=== PATIENT | male | born 1960 | race Caucasian/White ===

== ENCOUNTER 2018-09-06 15:15 | Inpatient (IN) | payer BC ==
--- NOTE | 2018-09-06 15:25 | EDPHY ---
H & P Time Seen by Provider: 09/06/18 15:24 HPI/ROS: CHIEF COMPLAINT: Shaking chills HISTORY OF PRESENT ILLNESS: Was on his way to Dr. Morrissey office to follow up on a prostate biopsy 10 days ago. He apparently has prostate cancer and was notified today. He started having chills and shaking on the way in. He presents to the ED now with severe shaking and chills. He feels hot and cold. He had some associated blood in his urine today but no dysuria. Denies vomiting or diarrhea or abdominal pain, no coughing or chest pain. REVIEW OF SYSTEMS: Eye: no change in vision ENT: no sore throat Cardiac: no chest pain or syncope Pulmonary: no cough or SOB Abdomen: HPI Musculoskeletal: no back pain Skin: no rash Neuro: no headache Constitutional: HPI : HPI A comprehensive 10 point review of systems is otherwise negative aside from elements mentioned in the history of present illness. PAST MEDICAL HISTORY: Prostate biopsy 10 days ago Social history: here with General Appearance: Alert and moderately uncomfortable, breathing fast. Eyes: No scleral icterus. ENT, Mouth: Normal mucous membranes. Respiratory: Normal respiratory effort, breath sounds equal, lungs are clear to auscultation. Tachypneic. Cardiovascular: Regular rate and rhythm. Gastrointestinal: Right upper quadrant and suprapubic tenderness on examination. Neurological: Alert, face symmetric, normal motor and sensory in extremities. Skin: Skin is pale but not diaphoretic. Musculoskeletal: No peripheral edema. Psychiatric: Appears moderately anxious. Emergency Department course/MDM: Patient hyperventilating and anxious, given 1 mg IV Ativan. Blood gas evaluated, shows acidosis which is metabolic. Will treat for possible severe sepsis with initial lactate greater than 6. Ceftriaxone 1 g ordered as most likely source is urinary. 1614: CT scan shows prostatitis per Dr. Josue otherwise negative. Results discussed with the patient. Lactated Ringer's 30 mL/kilos IV bolus. Urinalysis pending. 165: Discussed with Ghanshyam. 2nd lactate decreased from the 1st. Smoking Status: Former smoker Constitutional: Initial Vital Signs Temperature (C) 36.6 C 09/06/18 15:20 Heart Rate 143 H 09/06/18 15:20 Respiratory Rate 20 09/06/18 15:20 Blood Pressure 150/125 H 09/06/18 15:20 O2 Sat (%) 98 09/06/18 15:20 O2 Delivery Mode Room Air Allergies/Adverse Reactions: metoclopramide HCl [From Reglan] Allergy (Verified 09/06/18 17:01) Home Medications: Medication Instructions Recorded Ascorbic Acid [Vitamin C 500 mg 1,000 mg PO DAILY 09/06/18 (*)] Aspirin EC [Aspirin EC 81 mg (*)] 81 mg PO DAILY 09/06/18 Cholecalciferol Vit D3 [Vitamin D3 1,000 units PO DAILY 09/06/18 (*)] Desloratadine 5 mg PO DAILY 09/06/18 Fluticasone Nasal [Flonase Nasal 1 spray EACHNARE DAILY PRN 09/06/18 [place] (RX)] Ibuprofen [Motrin (*)] 200 - 600 mg PO Q8H PRN 09/06/18 Multivitamins [Multivitamin (*)] 1 each PO DAILY 09/06/18 Pantoprazole Sodium [Protonix 40mg 40 mg PO DAILY 09/06/18 (*)] Zolpidem Tartrate [Zolpidem 12.5 mg PO HS PRN 09/06/18 Tartrate ER] Medical Decision Making - Diagnostics Imaging Results: Imaging Impressions Abdomen CT 09/06/18 15:37 Impression: 1. Prostatitis status post biopsy without adjacent abscess or fluid collection. 2. Sigmoid diverticulosis without diverticulitis. 3. No appendicitis, bowel obstruction or significant adenopathy. 4. Small fat-containing periumbilical abdominal wall hernia. Findings and recommendations discussed with Emergency Department physician, Dr. Parveen Gomez at 1610 hours on September 06, 2018. Final report concurs with initial preliminary interpretation. Chest X-Ray 09/06/18 15:39 Impression: No evidence for pneumonia or metastatic prostate cancer. Imaging: Discussed imaging studies w/ on call Radiologist Consult/Admit Bed Type: [place] [id number] Critical Care Time: Critical care time spent by me, Dr. Gomez, exclusively with the care of this patient was 35 minutes, exclusive of PA or TRADE SALES ASSISTANT time and exclusive of separate procedures. The organ system at risk was infectious and I ordered multiple diagnostics, IV antibiotics, IV fluids to stabilize the patient and prevent worsening of the patient's condition. - Data Points Laboratory Results: Laboratory Results 09/06/18 15:27 09/06/18 15:27 10/09/1409/06/18 09/06/18 16:10 15:30 15:29 WBC RBC Hgb POC Hgb 16.7 gm/dL gm/dL (13.7-17.5) Hct POC Hct 49 % % (40-51) MCV MCH MCHC RDW Plt Count MPV Neut % (Auto) Lymph % (Auto) [place] % (Auto) Eos % (Auto) Baso % (Auto) Nucleat RBC Rel Count Absolute Neuts (auto) Absolute Lymphs (auto) Absolute Monos (auto) Absolute Eos (auto) Absolute Basos (auto) Absolute Nucleated RBC Immature Gran % Immature Gran # PT INR APTT POC Blood Source VENOUS Patient Temperature 36.6 DEGREES DEGREES POC VBG pH 7.29 L (7.31-7.42) POC VBG pCO2 40 mmHg mmHg (40-44) POC VBG pO2 TNP POC VBG HCO3 20 mEq/L L mEq/L (22-26) POC VBG Total CO2 21 mEq/L mEq/L (21-27) POC VBG Base Excess -7.0 mEq/L L mEq/L (-2.5-2.5) VBG Lactic Acid POC Mix VBG O2 Sat TNP POC Sodium 142 mEq/L mEq/L (135-145) Sodium POC Potassium 4.1 mEq/L mEq/L (3.3-5.0) Potassium POC Chloride 104 mEq/L mEq/L (97-110) Chloride Carbon Dioxide Anion Gap POC BUN 20 mg/dL mg/dL (7-23) BUN Creatinine POC Creatinine 1.1 mg/dL mg/dL (0.7-1.3) Estimated GFR Glucose POC Glucose 98 mg/dL mg/dL (70-100) POC Lactic Acid Zay 6.2 mmol/L H mmol/L (0.7-2.1) Calcium Total Bilirubin Conjugated Bilirubin Unconjugated Bilirubin AST ALT Alkaline Phosphatase Total Protein Albumin Lipase Urine Color YELLOW Urine Appearance MODERATELY TURBID Urine pH 5.0 (5.0-7.5) Ur Specific [place] 1.029 (1.002-1.030) Urine Protein 1+ H (NEGATIVE) Urine Ketones NEGATIVE (NEGATIVE) Urine Blood 3+ H (NEGATIVE) Urine Nitrate NEGATIVE (NEGATIVE) Urine Bilirubin NEGATIVE (NEGATIVE) Urine Urobilinogen NEGATIVE EU EU (0.2-1.0) Ur Leukocyte Esterase 3+ H (NEGATIVE) Urine RBC 50-182 /hpf H /hpf (0-3) Urine WBC 50-182 /hpf H /hpf (0-3) Ur Epithelial Cells NONE SEEN /lpf /lpf (NONE-1+) Urine Bacteria 1+ /hpf H /hpf (NONE SEEN) Urine Mucus TRACE /lpf /lpf (NONE-1+) Urine Glucose NEGATIVE (NEGATIVE) 09/06/18 09/06/18 09/06/18 15:27 15:27 15:27 WBC 13.07 10^3/uL H 10^3/uL (3.80-9.50) RBC 5.31 10^6/uL 10^6/uL (4.40-6.38) Hgb 16.4 g/dL g/dL (13.7-17.5) POC Hgb Hct 48.1 % % (40.0-51.0) POC Hct MCV 90.6 fL fL (81.5-99.8) MCH 30.9 pg pg (27.9-34.1) MCHC 34.1 g/dL g/dL (32.4-36.7) RDW 12.8 % % (11.5-15.2) Plt Count 282 10^3/uL 10^3/uL (150-400) MPV 10.4 fL fL (8.7-11.7) Neut % (Auto) 88.1 % H % (39.3-74.2) Lymph % (Auto) 10.1 % L % (15.0-45.0) [place] % (Auto) 0.4 % L % (4.5-13.0) Eos % (Auto) 0.7 % % (0.6-7.6) Baso % (Auto) 0.2 % L % (0.3-1.7) Nucleat RBC Rel Count 0.0 % % (0.0-0.2) Absolute Neuts (auto) 11.52 10^3/uL H 10^3/uL (1.70-6.50) Absolute Lymphs (auto) 1.32 10^3/uL 10^3/uL (1.00-3.00) Absolute Monos (auto) 0.05 10^3/uL L 10^3/uL (0.30-0.80) Absolute Eos (auto) 0.09 10^3/uL 10^3/uL (0.03-0.40) Absolute Basos (auto) 0.03 10^3/uL 10^3/uL (0.02-0.10) Absolute Nucleated RBC 0.00 10^3/uL 10^3/uL (0-0.01) Immature Gran % 0.5 % % (0.0-1.1) Immature Gran # 0.06 10^3/uL 10^3/uL (0.00-0.10) PT 12.9 SEC SEC (12.0-15.0) INR 0.95 (0.83-1.16) APTT 24.7 SEC SEC (23.0-38.0) POC Blood Source Patient Temperature POC VBG pH POC VBG pCO2 POC VBG pO2 POC VBG HCO3 POC VBG Total CO2 POC VBG Base Excess VBG Lactic Acid POC Mix VBG O2 Sat POC Sodium Sodium 141 mEq/L mEq/L (135-145) POC Potassium Potassium 4.6 mEq/L mEq/L (3.3-5.0) POC Chloride Chloride 103 mEq/L mEq/L (97-110) Carbon Dioxide 20 mEq/l L mEq/l (22-31) Anion Gap 18 mEq/L H mEq/L (8-16) POC BUN BUN 18 mg/dL mg/dL (7-23) Creatinine 1.1 mg/dL mg/dL (0.7-1.3) POC Creatinine Estimated GFR > 60 Glucose 96 mg/dL mg/dL (70-100) POC Glucose POC Lactic Acid Zay Calcium 10.1 mg/dL mg/dL (8.5-10.4) Total Bilirubin 0.7 mg/dL mg/dL (0.1-1.4) Conjugated Bilirubin 0.2 mg/dL mg/dL (0.0-0.5) Unconjugated Bilirubin 0.5 mg/dL mg/dL (0.0-1.1) AST 26 IU/L IU/L (17-59) ALT 43 IU/L IU/L (21-72) Alkaline Phosphatase 52 IU/L IU/L (38-126) Total Protein 8.4 g/dL H g/dL (6.3-8.2) Albumin 5.2 g/dL H g/dL (3.5-5.0) Lipase 55 IU/L IU/L (23-300) Urine Color Urine Appearance Urine pH Ur Specific [place] Urine Protein Urine Ketones Urine Blood Urine Nitrate Urine Bilirubin Urine Urobilinogen Ur Leukocyte Esterase Urine RBC Urine WBC Ur Epithelial Cells Urine Bacteria Urine Mucus Urine Glucose 09/06/18 15:25 WBC RBC Hgb POC Hgb Hct POC Hct MCV MCH MCHC RDW Plt Count MPV Neut % (Auto) Lymph % (Auto) [place] % (Auto) Eos % (Auto) Baso % (Auto) Nucleat RBC Rel Count Absolute Neuts (auto) Absolute Lymphs (auto) Absolute Monos (auto) Absolute Eos (auto) Absolute Basos (auto) Absolute Nucleated RBC Immature Gran % Immature Gran # PT INR APTT POC Blood Source Patient Temperature POC VBG pH POC VBG pCO2 POC VBG pO2 POC VBG HCO3 POC VBG Total CO2 POC VBG Base Excess VBG Lactic Acid 6.4 mmol/L H mmol/L (0.7-2.1) POC Mix VBG O2 Sat POC Sodium Sodium POC Potassium Potassium POC Chloride Chloride Carbon Dioxide Anion Gap POC BUN BUN Creatinine POC Creatinine Estimated GFR Glucose POC Glucose POC Lactic Acid Zay Calcium Total Bilirubin Conjugated Bilirubin Unconjugated Bilirubin AST ALT Alkaline Phosphatase Total Protein Albumin Lipase Urine Color Urine Appearance Urine pH Ur Specific [place] Urine Protein Urine Ketones Urine Blood Urine Nitrate Urine Bilirubin Urine Urobilinogen Ur Leukocyte Esterase Urine RBC Urine WBC Ur Epithelial Cells Urine Bacteria Urine Mucus Urine Glucose Medications Given: Acetaminophen (Tylenol) 650 mg PO Q4HRS PRN PRN Reason: Pain, Mild/Fever, Can Take PO Stop: 03/05/19 17:11 Last Admin: 09/06/18 17:14 Dose: 650 mg Discontinued Medications Hydromorphone HCl (Dilaudid) 1 mg IVP EDNOW ONE Stop: 09/06/18 16:45 Last Admin: 09/06/18 16:47 Dose: 1 mg Lactated Ringer's (Lr) 3,100 mls @ 6,200 mls/hr 30 ml/kg infuse over 30 min ( 3100 ml) IV EDNOW ONE PRN Reason: Protocol Stop: 09/06/18 16:03 Last Admin: 09/06/18 15:36 Dose: 3,100 mls Ceftriaxone Sodium/Dextrose (Rocephin 1 Gm (Premix)) 50 mls @ 100 mls/hr IV EDNOW ONE PRN Reason: Protocol Stop: 09/06/18 16:03 Last Admin: 09/06/18 16:00 Dose: 50 mls Lorazepam (Ativan Injection) 1 mg IVP EDNOW ONE Stop: 09/06/18 15:32 Last Admin: 09/06/18 15:32 Dose: 1 mg Point of Care Test Results: Chemistry 09/06/18 15:30 POC Sodium 142 mEq/L mEq/L (135-145) POC Potassium 4.1 mEq/L mEq/L (3.3-5.0) POC Chloride 104 mEq/L mEq/L (97-110) POC BUN 20 mg/dL mg/dL (7-23) POC Creatinine 1.1 mg/dL mg/dL (0.7-1.3) POC Glucose 98 mg/dL mg/dL (70-100) Blood Gas/Lactic Acid-Arterial 09/06/18 15:29 POC Blood Source VENOUS Blood Gas/Lactic Acid-Venous 09/06/18 15:29 POC VBG pH 7.29 L (7.31-7.42) POC VBG pCO2 40 mmHg mmHg (40-44) POC VBG pO2 TNP POC VBG HCO3 20 mEq/L L mEq/L (22-26) POC VBG Total CO2 21 mEq/L mEq/L (21-27) POC VBG Base Excess -7.0 mEq/L L mEq/L (-2.5-2.5) POC Mix VBG O2 Sat TNP POC Lactic Acid Zay 6.2 mmol/L H mmol/L (0.7-2.1) ISTAT H&H 09/06/18 15:30 POC Hgb 16.7 gm/dL gm/dL (13.7-17.5) POC Hct 49 % % (40-51) Departure - Departure Disposition: [facility] Inpatient Acute Clinical Impression: Septic shock Prostatitis Qualifiers: Prostatitis type: acute Qualified Code(s): N41.0 - Acute prostatitis Condition: Serious
[2018-09-06] MEDS ORDERED: LORazepam 2 MG/ML INJ ONE (15:28)
[2018-09-06] MEDS ORDERED: LORazepam 2 MG/ML INJ IVP ONE (15:31)
[2018-09-06] MEDS ORDERED: LR IV ONE (15:34)
[2018-09-06] MEDS ORDERED: IOPAMIDOL (ISOVUE-300) 100 ML BTL ONE (15:41)
[2018-09-06 16:01] LABS: INR 0.95 (0.83-1.16); PROTIME(PATIENT) 12.9 SEC (12.0-15.0)
[2018-09-06 16:02] LABS: PLATELET COUNT 282 10^3/uL (150-400)
[2018-09-06] MEDS ORDERED: HYDROmorphONE/DILAUDID 2 MG/ML INJ IVP ONE (16:44)
[2018-09-06] MEDS ORDERED: ACETAMINOPHEN 325 MG TAB PO PRN ×2 (17:12→17:44)
[2018-09-06] MEDS ORDERED: ACETAMINOPHEN 325 MG TAB ONE (17:13)
[2018-09-06] MEDS ORDERED: FLUTICASONE NASAL 120 SPRAYS/16 GM MDI EACHNARE PRN (17:42)
[2018-09-06] MEDS ORDERED: ALTEPLASE 2 MG VIAL IVP PRN (17:43)
[2018-09-06] MEDS ORDERED: oxyCODONE IR 5 MG TAB PO PRN (17:44)
[2018-09-06] MEDS ORDERED: PROMETHAZINE HCL 25 MG/ML INJ IVP PRN (17:44)
[2018-09-06] MEDS ORDERED: ONDANSETRON DISINTEGRATING 4 MG TAB PO PRN (17:44)
[2018-09-06] MEDS ORDERED: LORazepam 2 MG/ML INJ IVP PRN (17:44)
[2018-09-06] MEDS ORDERED: LORazepam 0.5 MG TAB PO PRN (17:44)
[2018-09-06] MEDS ORDERED: HYDROCODONE/APAP 5/325 TAB PO PRN (17:44)
--- NOTE | 2018-09-06 19:48 | PDGENHP ---
History and Physical - Chief Complaint fever and chills - History of Present Illness Patient is a a 58 year old who recently underwent a prostate biopsy and was diagnosed with prostate cancer coming in with complaints of fevers, chills and generally feeling poorly. He notes after the procedure he was sent home on keflex, but he never really felt well after the procedure. Today however he seemed to get very sick very quickly. He has been having shaking chills and feeling overall very weak. He has not eatien very much. He has not had pain with urination, he has noticed blood in his urine since the procedure. He is upset over the cancer diagnosis. History Information - Allergies/Home Medication List Allergies/Adverse Reactions: metoclopramide HCl [From Reglan] Allergy (Verified 09/06/18 17:01) Home Medications: Ascorbic Acid [Vitamin C 500 mg (*)] 1,000 mg PO DAILY 09/06/18 [Last Taken 08/15] Aspirin EC [Aspirin EC 81 mg (*)] 81 mg PO DAILY 09/06/18 [Last Taken 09/05/18 11:00] Cholecalciferol Vit D3 [Vitamin D3 (*)] 1,000 units PO DAILY 09/06/18 [Last Taken 09/05/18] Desloratadine 5 mg PO DAILY 09/06/18 [Last Taken 09/05/18] Fluticasone Nasal [Flonase Nasal [place] (RX)] 1 spray EACHNARE DAILY PRN [Last Taken 2 Days Ago ~09/04/18] Ibuprofen [Motrin (*)] 200 - 600 mg PO Q8H PRN 09/06/18 [Last Taken 1 Week Ago ~ 08/30/18] Multivitamins [Multivitamin (*)] 1 each PO DAILY 09/06/18 [Last Taken 09/05/18] Pantoprazole Sodium [Protonix 40mg (*)] 40 mg PO DAILY 09/06/18 [Last Taken 08/15] Zolpidem Tartrate [Zolpidem Tartrate ER] 12.5 mg PO HS PRN 09/06/18 [Last Taken 08/28/18] I have personally reviewed and updated: family history, medical history, social history, surgical history - Past Medical History cancer (recent dx of prostate cancer), GERD - Surgical History Additional surgical history: prostate biopsy - Family History Positive for: non-pertinent - Social History Smoking Status: Former smoker Alcohol Use: Rarely Drug Use: None Additional social history: Review of Systems Review of Systems: ROS: 10pt was reviewed & negative except for what was stated in HPI & below Physical Exam Physical Exam: Temp Pulse Resp BP Pulse Ox 38.5 C H 132 H 30 H 124/65 H 94 09/06/18 17:10 09/06/18 17:22 09/06/18 17:22 09/06/18 17:22 09/06/18 17:22 Constitutional: appears nourished, obese, uncomfortable Eyes: PERRL Ears, Nose, Mouth, Throat: moist mucous membranes, hearing normal Cardiovascular: no murmur, rub, or gallop, tachycardia, No edema Respiratory: no respiratory distress, no rales or rhonchi Gastrointestinal: normoactive bowel sounds, soft, non-tender abdomen, no palpable masses Genitourinary: no bladder tenderness Skin: warm, normal color Musculoskeletal: full muscle strength Neurologic: AAOx3 Psychiatric: interacting appropriately, not anxious Lab Data & Imaging Review 09/06/18 15:27 09/06/18 15:27 WBC 13.07 10^3/uL (3.80-9.50) H 09/06/18 15:27 RBC 5.31 10^6/uL (4.40-6.38) 09/06/18 15:27 Hgb 16.4 g/dL (13.7-17.5) 09/06/18 15:27 POC Hgb 16.7 gm/dL (13.7-17.5) 09/06/18 15:30 Hct 48.1 % (40.0-51.0) 09/06/18 15:27 POC Hct 49 % (40-51) 09/06/18 15:30 MCV 90.6 fL (81.5-99.8) 09/06/18 15:27 MCH 30.9 pg (27.9-34.1) 09/06/18 15:27 MCHC 34.1 g/dL (32.4-36.7) 09/06/18 15:27 RDW 12.8 % (11.5-15.2) 09/06/18 15:27 Plt Count 282 10^3/uL (150-400) 09/06/18: MPV 10.4 fL (8.7-11.7) 09/06/18: Neut % (Auto) 88.1 % (39.3-74.2) H 09/06/18: Lymph % (Auto) 10.1 % (15.0-45.0) L 09/06/18: [place] % (Auto) 0.4 % (4.5-13.0) L 09/06/18: Eos % (Auto) 0.7 % (0.6-7.6) 09/06/18: Baso % (Auto) 0.2 % (0.3-1.7) L 09/06/18 Nucleat RBC Rel Count 0.0 % (0.0-0.2) 09/06/18 Absolute Neuts (auto) 11.52 10^3/uL (1.70-6.50) H 09/06/18: Absolute Lymphs (auto) 1.32 10^3/uL (1.00-3.00) 09/06/18: Absolute Monos (auto) 0.05 10^3/uL (0.30-0.80) L 09/06/18: Absolute Eos (auto) 0.09 10^3/uL (0.03-0.40) 09/06/18: Absolute Basos (auto) 0.03 10^3/uL (0.02-0.10) 09/06/18 Absolute Nucleated RBC 0.00 10^3/uL (0-0.01) 09/06/18: Immature Gran % 0.5 % (0.0-1.1) 09/06/18 Immature Gran # 0.06 10^3/uL (0.00-0.10) 09/06/18: PT 12.9 SEC (12.0-15.0) 09/06/18: INR 0.95 (0.83-1.16) 09/06/18: APTT 24.7 SEC (23.0-38.0) 09/06/18 POC Blood Source VENOUS 09/06/18 15: Patient Temperature 36.6 DEGREES 09/06/18 15:29 POC VBG pH 7.29 (7.31-7.42) L 09/06/18 15: POC VBG pCO2 40 mmHg (40-44) 09/06/18 15:29 POC VBG pO2 TNP 09/06/18 15: POC VBG HCO3 20 mEq/L (22-26) L 09/06/18: POC VBG Total CO2 21 mEq/L (21-27) 09/06/18 15: POC VBG Base Excess -7.0 mEq/L (-2.5-2.5) L 09/06/18: VBG Lactic Acid 4.1 mmol/L (0.7-2.1) H 09/06/18 19:30 POC Mix VBG O2 Sat TNP 09/06/18 15: POC Sodium 142 mEq/L (135-145) 09/06/18 15: Sodium 141 mEq/L (135-145) 09/06/18 15: POC Potassium 4.1 mEq/L (3.3-5.0) 09/06/18 15: Potassium 4.6 mEq/L (3.3-5.0) 09/06/18 15: POC Chloride 104 mEq/L (97-110) 09/06/18 15: Chloride 103 mEq/L (97-110) 09/06/18: Carbon Dioxide 20 mEq/l (22-31) L 09/06/18: Anion Gap 18 mEq/L (8-16) H 09/06/18 15: POC BUN 20 mg/dL (7-23) 09/06/18 15: BUN 18 mg/dL (7-23) 09/06/18 15: Creatinine 1.1 mg/dL (0.7-1.3) 09/06/18 15: POC Creatinine 1.1 mg/dL (0.7-1.3) 09/06/18 15:30 Estimated GFR > 60 09/06/18 15: Glucose 96 mg/dL (70-100) 09/06/18 15: POC Glucose 98 mg/dL (70-100) 09/06/18 15: POC Lactic Acid Zay 6.2 mmol/L (0.7-2.1) H 09/06/18 15:29 Calcium 10.1 mg/dL (8.5-10.4) 09/06/18 15:27 Total Bilirubin 0.7 mg/dL (0.1-1.4) 09/06/18 15:27 Conjugated Bilirubin 0.2 mg/dL (0.0-0.5) 09/06/18 15: Unconjugated Bilirubin 0.5 mg/dL (0.0-1.1) 09/06/18 15:27 AST 26 IU/L (17-59) 09/06/18 15:27 ALT 43 IU/L (21-72) 09/06/18 15:27 Alkaline Phosphatase 52 IU/L (38-126) 09/06/18 15:27 Total Protein 8.4 g/dL (6.3-8.2) H 09/06/18 15: Albumin 5.2 g/dL (3.5-5.0) H 09/06/18 15: Lipase 55 IU/L (23-300) 09/06/18 15:27 Urine Color YELLOW 09/06/18 16:10 Urine Appearance MODERATELY TURBID 09/06/18 16:10 Urine pH 5.0 (5.0-7.5) 09/06/18 16:10 Ur Specific [place] 1.029 (1.002-1.030) 09/06/18 16:10 Urine Protein 1+ (NEGATIVE) H 09/06/18 16:10 Urine Ketones NEGATIVE (NEGATIVE) 09/06/18 16:10 Urine Blood 3+ (NEGATIVE) H 09/06/18 16:10 Urine Nitrate NEGATIVE (NEGATIVE) 09/06/18 16:10 Urine Bilirubin NEGATIVE (NEGATIVE) 09/06/18 16:10 Urine Urobilinogen NEGATIVE EU (0.2-1.0) 09/06/18 16:10 Ur Leukocyte Esterase 3+ (NEGATIVE) H 09/06/18 16:10 Urine RBC 50-182 /hpf (0-3) H 09/06/18 16:10 Urine WBC 50-182 /hpf (0-3) H 09/06/18 16:10 Ur Epithelial Cells NONE SEEN /lpf (NONE-1+) 09/06/18 16:10 Urine Bacteria 1+ /hpf (NONE SEEN) H 09/06/18 16:10 Urine Mucus TRACE /lpf (NONE-1+) 09/06/18 16:10 Urine Glucose NEGATIVE (NEGATIVE) 09/06/18 16:10 Visualized and Interpreted Chest x-ray results: Yes Chest X-Ray results: no infiltrate Visualized and Interpreted imaging results: Yes Interpretation: abd CT: prostatitis without abscess Assessment & Plan Assessment: Prostatitis (Acute) Septic shock (Acute) 58 yo M with recent prostate biopsy presenting with severe sepsis/septic shock in setting of prostatitis # severe sepsis/septic shock: with presenting lactate of 6 as well as fever to 103, elevated wbc, tachycardia. Lactate trending down now with volume resuscitation, cultures drawn and pending, patient HD stable at this time. # prostatitis: with hx of recent prostate bx, no e/o associated abscess on imaging, UA c/w infection and cultures pending, started on ctx for now pending further culture data # prostate cancer: recent dx, unknown stage, patient moderately anxious regarding this dx # AGMA: secondary to elevated lactate, monitoring # IP status, will need ICU care for septic shock Patient new to my care. Care plan reviewed with ER doctor and Dr. Solorzano of pulmonary. Further hx obtained from patients present at bedside. > 35 min critical care time spent in eval/mgmt of labs/images and in coordination of care with other physicians.
[2018-09-06] MEDS ORDERED: NOREPINEPHRINE BITARTRATE 4 MG in NS 500 ML IV SCH (21:00)
[2018-09-06] MEDS: HYDROmorphONE/DILAUDID 1 MG/ML INJ IVP PRN (22:08)
[2018-09-06] MEDS: ZOLPIDEM TARTRATE 5 MG TAB PO PRN (22:09)
[2018-09-06] MEDS ORDERED: NS 1,000 ML IV SCH (23:15)
[2018-09-07 05:58] LABS: PLATELET COUNT 199 10^3/uL (150-400)
[2018-09-07] MEDS: ENOXAPARIN 40 MG/0.4 ML SYR SC SCH (07:29)
[2018-09-07] MEDS: HYDROmorphONE/DILAUDID 1 MG/ML INJ IVP PRN (07:29)
[2018-09-07] MEDS: MULTIVITAMINS 1 EACH TAB PO SCH (07:30)
[2018-09-07] MEDS: PANTOPRAZOLE SODIUM 40 MG TAB PO SCH (07:30)
[2018-09-07] MEDS: ASPIRIN EC 81 MG TAB PO SCH (07:30)
[2018-09-07] MEDS: ASCORBIC ACID 500 MG TAB PO SCH (07:30)
--- NOTE | 2018-09-07 09:22 | PDMN ---
Medical Necessity Medical necessity: MCG; M160 sepsis and other febrile illness A-3 : recent prostate biopsy presenting with severe sepsis/septic shock in setting of prostatitis, lactate of 6, fever 103, elevated wbc, tachycardia, prostatitis , recent dg prostate ca., AGMA secondary to elevated lactate, anticipate > 2 MN ongoing med nec care, tx and further eval.
--- NOTE | 2018-09-07 09:42 | SOAPPROG ---
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 shock Acute see above Prostate cancer Acute further discussion after recovery from acute event Plan: Continue care 09/07/18 09:40 Subjective: still not well Objective: Vital Signs Temp Pulse Resp BP Pulse Ox 37.3 C 70 16 98/57 L 96 09/07/18 06:00 09/07/18 09:00 09/07/18 09:30 09/07/18 09:39 09/07/18 09:30 Laboratory Results 09/07/18 05:10 09/07/18 05:10 09/06/18 09/07/18 09/08/18 05:59 05:59 05:59 Intake Total 5474 Output Total 1200 Balance 4274 PT 12.9 SEC (12.0-15.0) 09/06/18 15:27 INR 0.95 (0.83-1.16) 09/06/18 15:27 Physical Exam - Physical Exam General Appearance: alert Respiratory: No respiratory distress Cardiac/Chest: regular rate, rhythm Neuro/Psych: alert, oriented x 3 ICD10 Worksheet Patient Problems: Problems Problem Status Onset Prostatitis Acute Septic shock Acute
--- NOTE | 2018-09-07 10:13 | HOSPPROG ---
Hospitalist Progress Note Assessment/Plan: 58yo M with recent prostate biopsy presents with prostatitis and septic shock. #E coli bacteremia: 2/2 blood cultures. - Continue IV ceftriaxone (low risk for resistant organism), await sensitivities and narrow as able, will need 14 day course of abx, ID consulted #Septic shock 2/2 prostatitis: Clinically improved, off pressors. Lactate down- trending. - NS, recheck lactate to ensure clears #Prostatitis: In setting of recent prostate biopsy. #Prostate cancer: Followed by Dr Morrissey. Path pending on biopsy. #AGMA: Resolved. Diet: regular VTE ppx: LMWH Code: full Dispo: Remain inpatient for IV antibiotics, transfer to med/surg later this afternoon if lactate clears, remains off pressors. Subjective: Feeling much better this AM but still very fatigued and achy. No issues with urination. Pain controlled with meds. Hasn't had BM. Off pressors. Objective: Vital Signs Temp Pulse Resp BP Pulse Ox 37.3 C 70 16 98/57 L 96 09/07/18 06:00 09/07/18 09:00 09/07/18 09:30 09/07/18 09:39 09/07/18 09:30 Laboratory Results 09/07/18 05:10 09/07/18 05:10 09/06/18 09/07/18 09/08/18 05:59 05:59 05:59 Intake Total 5474 Output Total 1200 Balance 4274 PT 12.9 SEC (12.0-15.0) 09/06/18 15:27 INR 0.95 (0.83-1.16) 09/06/18 15:27 - Physical Exam Constitutional: no apparent distress, appears nourished, not in pain Eyes: PERRL, anicteric sclera, EOMI Ears, Nose, Mouth, Throat: moist mucous membranes, hearing normal, ears appear normal, no oral mucosal ulcers Cardiovascular: regular rate and rhythym, no murmur, rub, or gallop Respiratory: no respiratory distress, no rales or rhonchi, clear to auscultation Gastrointestinal: normoactive bowel sounds, soft, non-tender abdomen, no palpable masses Skin: no rashes or abrasions, no fluctuance, no induration Musculoskeletal: full muscle strength, no muscle tenderness, normal joint ROM Neurologic: AAOx3, sensation intact bilaterally Psychiatric: interacting appropriately, not anxious, not encephalopathic, thought process linear ICD10 Worksheet Patient Problems: Problems Problem Status Onset Prostatitis Acute Septic shock Acute
[2018-09-07] MEDS: IBUPROFEN 200 MG TAB PO PRN (10:42)
[2018-09-07] MEDS: ERTAPENEM 1 GM in NS 100 ML IV SCH (10:59)
[2018-09-07] MEDS: ONDANSETRON 4 MG/2 ML VIAL IVP PRN ×2 (11:18→19:20)
--- NOTE | 2018-09-07 13:48 | PDINTPN ---
[facility] Progress Note Assessment/Plan: Assessment: E Coli bacteremia/sepsis: From prostate Biopsy. On CTX. Fluid resuscitated, but requiring low-dose NE to maintain BP. Prostate Ca: Recently diagnosed Emesis Plan: Titrate NE down as tolerated. ID consulted, adding Invanz until E.Coli sensitivities back. Zofran for N/V 09/07/18 13:59 Subjective: Still feels poorly. Upset stomach, vomited today. Objective: Vital Signs Temp Pulse Resp BP Pulse Ox 36.6 C 85 19 98/55 L 92 09/07/18 10:00 09/07/18 13:00 09/07/18 13:00 09/07/18 13:00 09/07/18 13:00 Laboratory Results 09/07/18 05:10 09/07/18 05:10 09/06/18 09/07/18 09/08/18 05:59 05:59 05:59 Intake Total 5474 Output Total 1200 750 Balance 4274 -750 PT 12.9 SEC (12.0-15.0) 09/06/18 15:27 INR 0.95 (0.83-1.16) 09/06/18 15:27 Physical Exam - Physical Exam General Appearance: alert, no apparent distress EENT: normal ENT inspection Neck: normal inspection Respiratory: lungs clear, normal breath sounds Cardiac/Chest: regular rate, rhythm, No edema Abdomen: normal bowel sounds, non-tender Skin: normal color, warm/dry Extremities: normal inspection Neuro/Psych: alert, normal mood/affect, oriented x 3 ICD10 Worksheet Patient Problems: Problems Problem Status Onset Prostatitis Acute Septic shock Acute
--- NOTE | 2018-09-07 14:24 | GCON ---
PULMONARY/CRITICAL CARE CONSULTATION DATE OF CONSULTATION: 09/06/2018 REFERRING PHYSICIAN: Adore Araujo MD REASON FOR CONSULTATION: Evaluation and management of sepsis. HISTORY: The patient is a 58-year-old male who recently underwent a prostate biopsy and was diagnose d with prostate cancer. The biopsy was done on August 29, and the patient received Cipro for 3 days after the biopsy. He rep orts that he did not feel particularly well after the procedure, but then over the last 24 hours, he started to feel quite ill. He had shaking chills and felt quite weak. He has not been eating much. He has not had dysuria, but has had some hematuria since the procedure. PAST MEDICAL HISTORY: 1. GERD. 2. Prostate cancer, recently diagnosed. MEDICATIONS: At the time of admission include vitamin C, aspirin, desloratadine, Flonase, ibuprofen, pantoprazole, zolpidem. ALLERGIES: Metoclopramide. SOCIAL HISTORY: The patient is a former smoker. He rarely drinks alcohol. FAMILY HISTORY: Unremarkable. REVIEW OF SYSTEMS: A 10-point review of systems adds nothing to the History of Present Illness. PHYSICAL EXAMINATION: GENERAL: The patient is awake, alert, and in no acute distress. VITAL SIGNS: His blood pressure is 111/72, with a heart rate of 130. He is afebrile. Oxygen saturations are 98 % on room air. HEENT: Normocephalic and atraumatic. No icterus. NECK: No JVD. Trachea is midlin e. CHEST: Clear to auscultation. CARDIAC: Regular, tachycardia, without murmur. ABDOMEN: Soft, n ontender. Bowel sounds are present. EXTREMITIES: No clubbing, cyanosis, or edema. NEURO: The pat ient is awake and alert. There are no gross motor or sensory deficits. LABORATORY DATA: A chemistry group shows a BUN of 18, with a creatinine of 1.1. Anion gap is 18, wi th a carbon dioxide of 20 on his chemistry group. His white blood count is 13.1. Lactate is 6.4. B lood gas shows a pH of 7.29, with a CO2 of 40, and a bicarb of 20. Urinalysis shows over 50 red bloo d cells and over [address] white blood [address] A [address] scan of the chest shows clear lung mora. Images revie wed by me. A CT scan of the abdomen shows prostatitis, without abscess. ASSESSMENT: 1. Sepsis. The patient has sepsis based on the tachycardia and the elevated lactate and white blood count. The most likely source is prostatitis. The patient has empirically received ceftriaxone. 2. Prostate cancer. RECOMMENDATIONS: IV fluids per sepsis protocol, which have already been started. I will increase th e ceftriaxone to 2 g daily. Cultures and sensitivities are pending from urine and blood. Pantoprazo le will be continued. I will start Lovenox for DVT prophylaxis. /[id number]/MODL
--- NOTE | 2018-09-07 15:25 | GCON ---
INFECTIOUS DISEASE CONSULTATION. REFERRING PHYSICIAN: Silvano Solorzano MD REASON FOR CONSULTATION: E coli bacteremia secondary to prostatitis. HISTORY OF PRESENT ILLNESS: This is a 58-year-old male who underwent a prostate biopsy on August 31, 2018, to rule out prostate cancer due to an elevated PSA. The patient received perioperative Cipro. Subsequently patient developed significant malaise that was progressive, then fever and rigors. Th erefore, he presented to the emergency room 09/06/2018. In the emergency room, the patient was found to be tachycardic with an elevated white count and there was significant concern for sepsis. The hanny duran underwent a CT scan that showed prostatitis status post biopsy without adjacent abscess or flui d. The patient was given IV fluids and admitted to the hospital, started on IV ceftriaxone. In less than 24 hours, 2 sets of blood cultures grew out E coli. Urine culture is pending. Overall patient feels symptomatically improved and has had no further rigors. In addition, on admission, he had dif ficulty emptying his bladder and this is now resolved. Notably patient does remain on pressors and h is white count went from 13,000 to 40,000. ID is asked to consult regarding antibiotic recommendatio ns. PAST MEDICAL HISTORY: 1. The patient had C diff about 5 years ago following dental surgery and treatment with clindamycin in 2012. 2. Gastroesophageal reflux disease. 3. Scrotal abscess 15 years ago complicated by laceration of scrotal artery. 4. Obstructive sleep apnea. 5. Recent diagnosis of prostate cancer. SOCIAL HISTORY: Patient is . 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 He drives to [place], [place] and [place] weekly. He is about to begin his 2 week vacation upcoming with planned travel to [place], [place] next week. He is a former smoker and occasionally uses alcohol. FAMILY HISTORY: Positive for prostate cancer. ALLERGIES: NKDA. MEDICATIONS: The patient was started on ceftriaxone 2 g IV daily on September 06. He is also on norep inephrine and expected other ICU medicines including pain medicines, Protonix and anti nausea medicin es. REVIEW OF SYSTEMS: A complete 10-point review of systems was performed and is negative except as men tioned in the HPI. Specifically, patient denies diarrhea. PHYSICAL EXAM: VITAL SIGNS: BP 106/68, HR 89, RR 16, saturation 98% on room air, T 36.6, T-max 38.8. GENERAL: This is a pleasant male sitting up in bed. No acute distress. HEENT: Pupils are reactive b ilaterally. No conjunctival hemorrhages. Oropharynx moist mucous membranes. NECK: Supple. CARDIOVA SCULAR: Regular rate no murmurs. CHEST: Clear to auscultation bilaterally. ABDOMEN: Soft, nonten kamini. Bowel sounds are present. Mildly distended. EXTREMITIES: No clubbing, cyanosis, or edema. G U: No Marks was in place. SKIN: No rashes. IV access, patient has a PICC line right upper extremity. NEUROLOGIC: He is alert, oriented x4. Moving all 4 extremities equally. LABORATORY: White count 40,000, hematocrit 34, platelets of 199. Creatinine 1.0. AST 25, ALT 37, a lkaline phosphatase 29, albumin 3.0. PSA 8.3. Microbiology as per HPI. ASSESSMENT AND PLAN: This is a 58-year-old male with sepsis due to E coli bacteremia secondary to pr ostatitis, status post recent prostate biopsy. Importantly, patient does have a history of C diff in the past. The patient has had some degree of improvement with improving lactate. No further rigors and general trend down of his fever curve, but his white count is dramatically increased today, which is likely just a course of illness. Some concern for ESBL E coli, although patient has not had anti biotics for many years. 1. While await susceptibilities of E coli, we will start ertapenem with plans to narrow spectrum of antibiotic once susceptibility is known. 2. Discussed potential need for IV therapy going forward, particularly could be long-term in light o f findings consistent with prostatitis on CT scan. 3. Suspect the organism will be resistant to Cipro, but could consider long-term treatment with Bact rim if susceptible. TIME: 85 minutes, greater 50% time spent in education and counseling regarding IV antibiotics, longe r course of treatment, risks and benefits of this therapy and need for ongoing hospitalization. Thank you for this consultation. We will continue to see the patient on a daily basis. /[id number]/MODL
--- NOTE | 2018-09-07 15:46 | ASMTCASEMG ---
Living Arrangements What is your living Answers: With Spouse arrangement? Who do you live with? Type Of Residence What kind of residence do Answers: House you live in? Discharge Plan Comments Coordination Status Comments Notes: Patient is a 58yo male who recently underwent a prostate biopsy and was diagnosed with prostate cancer. Patient came to [facility] with fever and chills that progressed quickly in the emergency room. Patient has been admitted for severe sepsis/septic shock, prostatitis, prostate cancer, AGMA. Patient has also been upset by the new diagnosis. A family meeting was held as patient's was here and needing support. See Ciera Noguera's notes on family meeting. Francia, patient's will need assistance with FMLA. We will meet tomorrow when she has her paperwork and will get a letter prepared for patient. No therapies ordered at this time. CM will follow. Date Signed: 09/07/2018 03:45 PM Electronically Signed By:Eva Rg LCSW
[2018-09-07] MEDS ORDERED: ALBUMIN 5% 250 ML BOTTLE IV ONE (16:40)
[2018-09-07] MEDS ORDERED: NS 1,000 ML IV SCH (21:00)
[2018-09-07] MEDS ORDERED: MAGNESIUM HYDROXIDE 30 ML UDCUP PO PRN (21:24)
[2018-09-07] MEDS ORDERED: MAGNESIUM HYDROXIDE 30 ML UDCUP PO ONE (21:24)
[2018-09-07] MEDS: ZOLPIDEM TARTRATE 5 MG TAB PO PRN (21:49)
[2018-09-08] MEDS: HYDROmorphONE/DILAUDID 1 MG/ML INJ IVP PRN ×2 (01:36→14:00)
[2018-09-08] MEDS: PANTOPRAZOLE SODIUM 40 MG TAB PO SCH (08:22)
[2018-09-08] MEDS: ASCORBIC ACID 500 MG TAB PO SCH (08:22)
[2018-09-08] MEDS: MULTIVITAMINS 1 EACH TAB PO SCH (08:22)
[2018-09-08] MEDS: ENOXAPARIN 40 MG/0.4 ML SYR SC SCH (08:22)
[2018-09-08] MEDS: ASPIRIN EC 81 MG TAB PO SCH (08:25)
[2018-09-08] MEDS: ERTAPENEM 1 GM in NS 100 ML IV SCH (08:28)
[2018-09-08] MEDS ORDERED: MAGNESIUM HYDROXIDE 30 ML UDCUP PO PRN (09:00)
[2018-09-08] MEDS ORDERED: LACTULOSE 20 GM/30 ML UDCUP PO PRN (09:00)
[2018-09-08] MEDS ORDERED: BISACODYL 10 MG SUPP PR PRN (09:00)
[2018-09-08] MEDS ORDERED: POLYETHYLENE GLYCOL 3350 17 GM PKT PO PRN (09:00)
[2018-09-08] MEDS: ONDANSETRON 4 MG/2 ML VIAL IVP PRN (09:20)
--- NOTE | 2018-09-08 09:57 | PDINTPN ---
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 On CTX, ertapenem. E-coli is portillo -sensitive. Fluid resuscitated, now off pressors. Prostate Ca: Recently diagnosed Emesis: Still nauseated. Likely due to sepsis. Improved, not resolved with Zofran. Plan: Increase activity as tolerated. Stop Ertapenem. Zofran for N/V. Transfer to floor. 09/08/18 09:59 Subjective: Walked around the unit this AM. Nauseated after walk and getting ertapenem. Poor PO since yesterday afternoon. Objective: Vital Signs Temp Pulse Resp BP Pulse Ox 36.6 C 75 15 117/69 94 09/08/18 08:00 09/08/18 09:00 09/08/18 09:00 09/08/18 09:00 09/08/18 09:00 Laboratory Results 09/08/18 04:40 09/08/18 04:40 09/07/18 09/08/18 09/09/18 05:59 05:59 05:59 Intake Total 5474 3997 Output Total 1200 2450 Balance 4274 1547 PT 12.9 SEC (12.0-15.0) 09/06/18 15:27 INR 0.95 (0.83-1.16) 09/06/18 15:27 Microbiology 09/06/18 15:27 Blood Blood Panel (PCR) - Final Escherichia Coli 09/06/18 15:27 Blood Blood Culture - Preliminary 09/06/18 15:27 Blood Gram Negative Andrea Physical Exam - Physical Exam General Appearance: alert, mild distress (due to nausea) EENT: normal ENT inspection Neck: normal inspection Respiratory: lungs clear, normal breath sounds Cardiac/Chest: regular rate, rhythm, No edema Abdomen: normal bowel sounds, non-tender Skin: normal color, warm/dry Extremities: normal inspection Neuro/Psych: alert, normal mood/affect, oriented x 3 ICD10 Worksheet Patient Problems: Problems Problem Status Onset Prostatitis Acute Septic shock Acute
[2018-09-08] MEDS: SENNOSIDES/DOCUSATE SODIUM TAB PO SCH ×2 (09:58→21:38)
--- NOTE | 2018-09-08 10:22 | HOSPPROG ---
Hospitalist Progress Note Assessment/Plan: 58yo M with recent prostate biopsy presents with prostatitis and septic shock. #E coli bacteremia: Gloria-sensitive. - Discontinue ertapenem, start IV levofloxacin (not tolerating much PO), ID following. Plan for 6 week course of abx #Septic shock 2/2 prostatitis: Clinically improved, off pressors since this AM. - Abx as above, IVF prn #Prostatitis: In setting of recent prostate biopsy, this was roughly 1.5 weeks ago. #Nausea: Related to infection vs abx. - IV anti-emetics #Prostate cancer: Followed by Dr Morrissey. Glen pending on biopsy. #AGMA: Resolved. Diet: regular VTE ppx: LMWH Code: full Dispo: Remain inpatient for IV antibiotics, transfer to med/surg. Subjective: Off pressors since 630am this morning. Nausea this morning, no vomiting, not much relief with zofran. Walked around unit. Objective: Vital Signs Temp Pulse Resp BP Pulse Ox 36.6 C 74 15 108/61 96 09/08/18 08:00 09/08/18 10:00 09/08/18 10:00 09/08/18 10:00 09/08/18 10:00 Laboratory Results 09/08/18 04:40 09/08/18 04:40 09/07/18 09/08/18 09/09/18 05:59 05:59 05:59 Intake Total 5474 3997 Output Total 1200 2450 Balance 4274 1547 PT 12.9 SEC (12.0-15.0) 09/06/18 15:27 INR 0.95 (0.83-1.16) 09/06/18 15:27 - Physical Exam Constitutional: no apparent distress, appears nourished, not in pain Eyes: PERRL, anicteric sclera, EOMI Ears, Nose, Mouth, Throat: moist mucous membranes, hearing normal, ears appear normal, no oral mucosal ulcers Cardiovascular: regular rate and rhythym, no murmur, rub, or gallop Respiratory: no respiratory distress, no rales or rhonchi, clear to auscultation Gastrointestinal: normoactive bowel sounds, soft, non-tender abdomen, no palpable masses Genitourinary: no bladder fullness, no bladder tenderness, no renal bruits Skin: no rashes or abrasions, no fluctuance, no induration Musculoskeletal: full muscle strength, no muscle tenderness, normal joint ROM Neurologic: AAOx3, sensation intact bilaterally Psychiatric: interacting appropriately, not anxious, not encephalopathic, thought process linear ICD10 Worksheet Patient Problems: Problems Problem Status Onset Prostatitis Acute Septic shock Acute
--- NOTE | 2018-09-08 15:05 | PCMIDPN ---
Assessment/Plan: Assessment/Plan: * Septic shock due to E coli bacteremia post prostate biopsy: Clinically improved with resolution of fever and decreasing white blood cell count. E coli isolate is portillo susceptible. This will allow for completion of treatment with oral fluoroquinolone given its excellent bioavailability. Will transition from ertapenem to levofloxacin IV today given his p.o. Intake remains limited secondary to nausea. Anticipate 6 week course of oral therapy treating as if acute prostatitis present based on occurrence post prostate biopsy and CT findings. 09/08/18 15:03 Subjective: Patient complains of nausea and limited oral intake. Objective: Vital Signs Temp Pulse Resp BP Pulse Ox 36.8 C 80 14 122/79 H 91 L 09/08/18 11:43 09/08/18 11:43 09/08/18 11:43 09/08/18 11:43 09/08/18 11:43 Laboratory Results 09/08/18 04:40 09/08/18 04:40 09/07/18 09/08/18 09/09/18 05:59 05:59 05:59 Intake Total 5474 3997 Output Total 1200 2450 Balance 4274 1547 Ertapenem # 2 Antibiotics # 3 Blood cultures 2/2 E coli which is portillo susceptible Urine culture no growth to date - Physical Exam General Appearance: alert, no apparent distress, non-toxic EENT: No scleral icterus, No thrush, No conjunctival petechiae Respiratory: lungs clear, No respiratory distress Cardiac/Chest: regular rate, rhythm Extremities: pedal edema Abdomen: non-tender, No distended ICD10 Worksheet Patient Problems: Problems Problem Status Onset Prostatitis Acute Septic shock Acute
[2018-09-08] MEDS: IBUPROFEN 200 MG TAB PO PRN (18:15)
[2018-09-09 07:56] VITALS: BP 137/80
--- NOTE | 2018-09-09 08:10 | SOAPPROG ---
SOAP Progress Note Assessment/Plan: Assessment: Prostatitis Acute E.Coli from blood, antibx per child support specialist Septic shock Acute see above Prostate cancer Acute further discussion after recovery from acute event Plan: Continue care 09/09/18 10:22 Subjective: improving Objective: Vital Signs Temp Pulse Resp BP Pulse Ox 36.7 C 52 L 20 137/80 H 91 L 09/09/18 04:22 09/09/18 07:55 09/09/18 07:55 09/09/18 07:55 09/09/18 07:55 Microbiology 09/06/18 20:30 Urine Culture - Final Urine,Clean Catch Gram Negative Andrea Laboratory Results 09/09/18 04:30 09/08/18 04:40 09/08/18 09/09/18 09/10/18 05:59 05:59 05:59 Intake Total 3997 550 400 Output Total 2450 Balance 1547 550 400 PT 12.9 SEC (12.0-15.0) 09/06/18 15:27 INR 0.95 (0.83-1.16) 09/06/18 15:27 Physical Exam - Physical Exam General Appearance: alert Respiratory: No respiratory distress Abdomen: soft Neuro/Psych: oriented x 3 ICD10 Worksheet Patient Problems: Problems Problem Status Onset Prostatitis Acute Septic shock Acute
[2018-09-09] MEDS: PANTOPRAZOLE SODIUM 40 MG TAB PO SCH (09:14)
[2018-09-09] MEDS: SENNOSIDES/DOCUSATE SODIUM TAB PO SCH (09:14)
[2018-09-09] MEDS: ENOXAPARIN 40 MG/0.4 ML SYR SC SCH (09:14)
[2018-09-09] MEDS: ASPIRIN EC 81 MG TAB PO SCH (09:14)
[2018-09-09] MEDS: MULTIVITAMINS 1 EACH TAB PO SCH (09:14)
[2018-09-09] MEDS: ASCORBIC ACID 500 MG TAB PO SCH (09:14)
--- NOTE | 2018-09-09 13:15 | PCMIDPN ---
Assessment/Plan: Assessment/Plan: * Septic shock due to E coli bacteremia post prostate biopsy: Marked clinical improvement with continued decrease in white blood cell count and no ongoing signs or symptoms of sepsis. Tolerating levofloxacin well to date. Plan 6 weeks of therapy treating as if findings secondary to acute prostatitis post prostatic biopsy. Side effects of fluoroquinolone use including tendinopathy, allergic reactions, skin rash, and need to avoid concomitant intake of polyvalent cations discussed with patient. Will have patient follow-up in our office post discharge for ongoing care. Advised to notify for recurrent fever, chills, or urinary symptoms or inability tolerate levofloxacin. 09/09/18 13:12 Subjective: Patient feels significantly improved. No further nausea and has tolerated all of his meals today without problems. No urinary complaints or flank pain. Objective: Vital Signs Temp Pulse Resp BP Pulse Ox 36.7 C 52 L 20 137/80 H 91 L 09/09/18 04:22 09/09/18 07:55 09/09/18 07:55 09/09/18 07:55 09/09/18 07:55 Microbiology 09/06/18 20:30 Urine Culture - Final Urine,Clean Catch Gram Negative Andrea Laboratory Results 09/09/18 04:30 09/08/18 04:40 09/08/18 09/09/18 09/10/18 05:59 05:59 05:59 Intake Total 3997 550 400 Output Total 2450 Balance 1547 550 400 Levofloxacin # 2, antibiotics # 4 - Physical Exam General Appearance: alert, no apparent distress EENT: No scleral icterus, No thrush Respiratory: lungs clear, No respiratory distress Cardiac/Chest: regular rate, rhythm Abdomen: non-tender, No distended Back: No CVA tenderness ICD10 Worksheet Patient Problems: Problems Problem Status Onset Prostatitis Acute Septic shock Acute
--- NOTE | 2018-09-09 14:02 | ASMTLACE ---
LACE Length of stay for Answers: 3 days current admission Acuity / Level of Answers: Yes Care: Did the patient have an inpatient admission? Comorbidities - select Answers: Any tumor (including all that apply lymphoma or leukemia) Other Notes: GERD # of Emergency department Answers: 1-2 visits in the last 6 months Score: 10 Date Signed: 09/09/2018 02:02 PM Electronically Signed By:VU Ahn
--- NOTE | 2018-09-09 14:05 | ASMTCMCOM ---
CM Note CM Note Notes: Pts case discussed w/ ARANZA Stratton. Pt is being discharged today. Pt will not have any needs at this time. CM available for changes. Plan: Independent Date Signed: 09/09/2018 02:04 PM Electronically Signed By:VU Ahn
--- NOTE | 2018-09-09 20:31 | GDS ---
DISCHARGE DIAGNOSIS: 1. Sepsis, septic shock due to Escherichia coli bacteremia. 2. Escherichia coli bacteremia, probably related to prostate biopsy and possible prostatitis. 3. History of prostate cancer. HOSPITAL COURSE: Patient was admitted with sepsis and septic shock in the setting of a recent prosta te biopsy. He grew out E coli in his blood. He was treated with IV antibiotics. He improved fairly rapidly and was able to be weaned off pressors. He continued to improve and was able to tolerate or al food and medications. He is going to be sent home with 6 weeks of oral Levaquin for the bacteremi a and as treatment for prostatitis. Greater than 30 minutes was spent on discharge. /[id number]/MODL
== END 2018-09-09 14:41 | disposition home or self-care (01) | DRG 872 ==
LOC: F2N 17:29 → F1N 09-08 11:42
PROVIDERS: ADMIT Internal Medicine; ATTEND Internal Medicine
PROC: 02HV33Z Insertion of Infusion Device into Superior Vena Cava, Percutaneous Approach (ICD-10-PCS; principal; 2018-09-06)
DX: A41.51 Sepsis due to Escherichia coli [E. coli] (principal); R65.20 Severe sepsis without septic shock; N41.0 Acute prostatitis; C61 Malignant neoplasm of prostate; Z87.891 Personal history of nicotine dependence
CPT/HCPCS: 82435-PO; 82565-PO; 82947-PO; 83605-PO; 84132-PO; 84295-PO; 84520-PO; 85014-PO; 96365; 97161-GP; 97165-GO; C1751; J0696; J1170; J1335; J1650; J1956; J2060; J2405; P9041; Q9967